=== PATIENT | female | born 1940 | race Caucasian/White ===

== ENCOUNTER 2021-03-10 13:57 | Outpatient (NON) | payer MEDICARE, SELFPAY ==
[2021-03-10 18:04] LABS: Anion Gap 4 mmol/L (8-16); Blood Urea Nitrogen 44 mg/dL (7-17); Calcium 9.3 mg/dL (8.4-10.2); Carbon Dioxide 31 mmol/L (22-30); Chloride 95 mmol/L (98-107); Estimated Glomerular Filt Rate 31; Glucose 118 mg/dL (65-110); Potassium 5.8 mmol/L (3.4-5.0); Sodium 130 mmol/L (137-145)
== END 2021-03-10 13:58 | disposition home or self-care (01) ==
LOC: ANHEH 14:15 → HOME HLTH 14:17
PROVIDERS: PCP Family Medicine; Visit Provider Internal Medicine
DX: I50.9 Heart failure, unspecified (principal)
CPT/HCPCS: 80048